=== PATIENT | female | born 1970 | race Caucasian/White ===

== ENCOUNTER 2017-04-18 14:29 | Emergency (ER) | payer SELFPAY | END 2017-04-18 15:30 | disposition home or self-care (01) | LOC: D.ER 14:29 | DX: H66.92 Otitis media, unspecified, left ear (principal); H60.92 Unspecified otitis externa, left ear ==

== ENCOUNTER 2017-11-18 17:35 | Emergency (ER) | payer SELFPAY | END 2017-11-18 19:00 | disposition home or self-care (01) | LOC: D.ER 17:35 | DX: B34.9 Viral infection, unspecified (principal) ==

== ENCOUNTER 2019-12-11 14:21 | Emergency (ER) | payer SELFPAY ==
[~2019-12-11] VITALS: Ht 160 cm; Wt 61.4 kg
[2019-12-11 14:25] VITALS: Ht 160 cm; Wt 61.4 kg
[2019-12-11] MEDS ORDERED: FLUTICASONE PRO16 GM NASAL (14:50)
[2019-12-11] MEDS ORDERED: IBUPROFEN800 MG PO (17:29)
[2019-12-11 17:53] VITALS: BP 143/102
== END 2019-12-11 17:55 | disposition home or self-care (01) ==
LOC: D.ER 14:21
DX: M19.072 Primary osteoarthritis, left ankle and foot (principal); I80.3 Phlebitis and thrombophlebitis of lower extremities, unspecified